=== PATIENT | female | born 1965 | race Caucasian/White ===

== ENCOUNTER 2023-12-05 06:57 | Day surgery (SDC) | payer BC, SELFPAY ==
[2023-12-01 11:04] VITALS: BMI 22.9
--- NOTE | 2023-12-04 14:56 | P.CONAN_ITS ---
Documented by User: Luisa Albarran NP 12/04/23 14:58 HPI - Anesthesia Eval Consult details Narrative: 58yo F for Upper Endoscopy and Colonoscopy [facility] Past Medical History Medical History Hypertriglyceridemia GERD (gastroesophageal reflux disease) Migraine Hyperplastic polyp of intestine Hyperlipidemia Anxiety Hypertension Diabetes Surgical History Surgical History History of cataract surgery History of colonoscopy Social History Social History Advance Directives: No Advance Directives Information Provided: Yes Meds Allergies Allergy/AdvReac Type Severity Reaction Status Date / Time No Known Allergies Allergy Verified 12/05/23 07:17 Home Medications Medication Instructions Recorded Confirmed Last Taken Type amitriptyline 10 mg tablet 20 mg PO BEDTIME 11/30/23 11/30/23 12/04/23 21:30 History amlodipine 5 mg tablet 5 mg PO DAILY 11/30/23 11/30/23 12/04/23 21:30 History empagliflozin 10 mg tablet 10 mg PO DAILY 11/30/23 11/30/23 Unknown History (Jardiance) metformin 1,000 mg tablet 1,000 mg PO BID 11/30/23 11/30/23 12/03/23 History omeprazole 40 mg capsule,delayed 40 mg PO DAILY 11/30/23 11/30/23 12/04/23 21:30 History release paroxetine HCl 10 mg tablet 10 mg PO DAILY 11/30/23 11/30/23 12/04/23 21:30 History valsartan 160 mg tablet 160 mg PO DAILY 11/30/23 11/30/23 12/04/23 21:30 History Exam Height,Weight and Vital Signs: Height 5 ft 2 in Weight 56.699 kg Assessment and Plan Assessment Anesthesia Assessment: Chart Reviewed Documented by User: Kendra Dill MD 12/05/23 07:32 HPI - Anesthesia Eval Anesthesia Pre-Procedure Meds Is the patient on any of the following meds?: Any other SGL-1 drugs or drugs that delay gastric emptying (jardiance, last dose monday) If Yes to any meds - educate patient: Pt education - increased risk of aspiration PMFSH Past Medical History Medical History Hypertriglyceridemia GERD (gastroesophageal reflux disease) Migraine Hyperplastic polyp of intestine Hyperlipidemia Anxiety Hypertension Diabetes Family History Family history of problems with anesthesia: No Surgical History Surgical History History of cataract surgery History of colonoscopy History of Problems with Anesthesia: No Social History Social History Advance Directives: No Advance Directives Information Provided: Yes Meds Allergies Allergy/AdvReac Type Severity Reaction Status Date / Time No Known Allergies Allergy Verified 12/05/23 07:17 Home Medications Medication Instructions Recorded Confirmed Last Taken Type amitriptyline 10 mg tablet 20 mg PO BEDTIME 11/30/23 11/30/23 12/04/23 21:30 History amlodipine 5 mg tablet 5 mg PO DAILY 11/30/23 11/30/23 12/04/23 21:30 History empagliflozin 10 mg tablet 10 mg PO DAILY 11/30/23 11/30/23 Unknown History (Jardiance) metformin 1,000 mg tablet 1,000 mg PO BID 11/30/23 11/30/23 12/03/23 History omeprazole 40 mg capsule,delayed 40 mg PO DAILY 11/30/23 11/30/23 12/04/23 21:30 History release paroxetine HCl 10 mg tablet 10 mg PO DAILY 11/30/23 11/30/23 12/04/23 21:30 History valsartan 160 mg tablet 160 mg PO DAILY 11/30/23 11/30/23 12/04/23 21:30 History Exam Airway Mallampati Class: II TM Dist: >3cm Neck ROM: Full Heart: rrr Lungs: cta Assessment and Plan Assessment Anesthesia Assessment: Anesthesia Plan Discussed Final Anesthetic Review Family History of Problems with Anesthesia: No History of Problems with Anesthesia: No NPO: Yes ASA Class: III Final Preanesthetic Review: No Changes in Pt Med Stat, Meds/Allgs Chart Reviewed, Consent Obtained/Reviewed and Anes Risks/Benef Reviewed Patient Risk: Intermediate Procedure Risk: Low Anesthetic Plan Anesthetic Plan: MAC: Disposition: Standard PACU
[2023-12-05 07:21] VITALS: BMI 22.6
[2023-12-05 07:40] VITALS: BP 142/77; PULSE 104; RESP 16; TEMP 37.9; O2SAT 99
[2023-12-05 07:42] LABS: Glucose, Whole Blood 196 mg/dL (60-115)
[2023-12-05] MEDS: Lactated Ringers 1,000 ML 100 ML IVCONT (07:53)
--- NOTE | 2023-12-05 08:06 | MHC.SHP ---
Pre-Procedural Eval Section A Date of Service: 12/05/23 Section B Chief Complaint: gerd,screening Details of Present Illness: see H&P no changes Relevant Family History (Specify if Yes): No Relevant Social History: None Present Medications: see Short Stay Collaborative assessment Medical History: No relevant PMH History of Previous Operations: No relevant previous surgery Allergies: Allergies Allergy/AdvReac Type Severity Reaction Status Date / Time No Known Allergies Allergy Verified 12/05/23 07:17 Review of Systems Sugical H&P ROS: Negative: Constitution, Cardiovascular, Respiratory, Neurological, Psychiatric, Hem-Onc, Allergic/Immunologic, Gastrointestinal, Genitourinary, Musculoskeletal, Integumentary, Endocrine and Eyes/Ears/Nose/Throat Exam Surgical H&P Exam: Normal: HEENT, Normal: Heart, Normal: Lungs, Normal: Extremities, Normal: Abdomen, Normal: Skin and Normal: Neurological Plan Diagnosis/Plan: Unchanged I have reviewed the history and physical and performed a pertinent physical examination on my patient. No changes have occurred unless specified. Time Spent With Patient Time: Total time managing care of this patient today ____ minutes.
[2023-12-05 08:51] VITALS: BP 87/48; PULSE 81; RESP 13; TEMP 36.2; O2SAT 99
[2023-12-05 09:06] VITALS: BP 108/62; PULSE 85; RESP 16; TEMP 36.2; O2SAT 97
--- NOTE | 2023-12-05 09:25 | OP_ITS ---
DATE OF SERVICE: 12/05/2023 SURGEON: Watson Bourgeois MD INDICATIONS: 1. Gastroesophageal reflux disease. 2. Colon cancer screening. PREOPERATIVE DIAGNOSIS: POSTOPERATIVE DIAGNOSIS: PROCEDURE PERFORMED: Upper endoscopy with biopsy, colonoscopy to the terminal ileum. ESTIMATED BLOOD LOSS: COMPLICATIONS: ANESTHESIA: Monitored anesthesia care. ASSISTANTS: SPECIMENS: DESCRIPTION OF PROCEDURE: A history and physical performed. The risks and benefits of the procedure were explained to the patient, and informed consent was obtained. The patient was placed in the left lateral decubitus position. The Olympus video gastroscope was introduced into the esophagus, stomach, and duodenum. Examination was performed. The scope was removed. She tolerated the procedure well and was repositioned for colonoscopy. Digital rectal exam was performed and was found to be normal. The Olympus pediatric video colonoscope was introduced into the rectum and advanced to the cecum. The cecum was identified by transillumination, palpation, and identification of the ileocecal valve. Examination was performed. The scope was removed. She tolerated both procedures well and was returned to recovery area in stable condition. FINDINGS: Upper endoscopy: 1. Esophagus: The esophagus was normal. There was an irregular EG junction. There was no esophagitis. Biopsies were obtained from the EG junction. 2. Stomach: The stomach showed multiple benign-appearing gastric polyps measuring approximately less than 10 mm. Two of these were biopsied. These were present in the body and fundus in an appearance of fundic gland polyps. Antral biopsies were also obtained. 3. Duodenum: The bulb and second portion were normal. Colonoscopy: The terminal ileum was examined and appeared normal. The visualized colonic mucosa was normal. The quality of the prep was good. No polyps were identified. There were a few scattered diverticula in the sigmoid. Retroflexed examination showed moderate-sized internal hemorrhoids. IMPRESSION: 1. Gastric polyps. 2. Gastroesophageal reflux disease. 3. Normal colonoscopy. RECOMMENDATION: 1. Follow up the biopsy results. 2. Repeat colonoscopy is recommended in 10 years for average risk individuals. MD CHARLOTTE Philip/DAVIDL / [id number]
== END 2023-12-05 09:55 | disposition home or self-care (01) ==
PROVIDERS: PCP Internal Medicine Geriatric Medicine; Visit Provider Internal Medicine Gastroenterology
PROC: (CPT 45378; principal; 2023-12-05 08:20)
DX: Z12.11 Encounter for screening for malignant neoplasm of colon (principal); Z86.010 Personal history of colon polyps; K57.30 Diverticulosis of large intestine without perforation or abscess without bleeding; K64.8 Other hemorrhoids; K21.9 Gastro-esophageal reflux disease without esophagitis; K31.7 Polyp of stomach and duodenum; K76.0 Fatty (change of) liver, not elsewhere classified; R79.89 Other specified abnormal findings of blood chemistry; R74.8 Abnormal levels of other serum enzymes; E78.1 Pure hyperglyceridemia; I10 Essential (primary) hypertension; E78.5 Hyperlipidemia, unspecified; E11.9 Type 2 diabetes mellitus without complications; F41.9 Anxiety disorder, unspecified; G43.909 Migraine, unspecified, not intractable, without status migrainosus; Z79.84 Long term (current) use of oral hypoglycemic drugs; Z79.899 Other long term (current) drug therapy
CPT/HCPCS: 45378; 43239; 82947; 88305; 88342; J2250; J2704